=== PATIENT | female | born 1970 | race Caucasian/White ===

== ENCOUNTER 2021-11-14 18:23 | Emergency (ER) | payer MEDICAID, OTHER ==
[~2021-11-14] VITALS: Ht 175 cm; Wt 210.0 kg
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
--- NOTE | 2021-11-14 19:51 | Diagnostic Imaging Report ---
HISTORY: Left tibia and fibula, pain after fall. TECHNIQUE: 2 views of the left tibia and fibula. COMPARISON: None. FINDINGS: There are screw tracks in the distal tibia from removed hardware. There are multiple surgical clips in the medial leg. There is marked soft tissue swelling in the left leg. No acute fracture is seen in the left tibia and fibula. There are degenerative changes in the left ankle and there appears to be osteopenia. IMPRESSION: No acute osseous abnormality is seen in the left tibia and fibula. Dictated by: Dictated on workstation # [id number]
--- NOTE | 2021-11-14 19:53 | Diagnostic Imaging Report ---
HISTORY: Left knee pain after fall. TECHNIQUE: 3 views of the left knee. COMPARISON: None. FINDINGS: Bones appear somewhat osteopenic. There is internal fixation of the distal left femoral fracture with an intramedullary artur, lateral plate and numerous screws. There does appear to be some healing change and bone bridging. There are severe degenerative changes in the left knee. No acute fracture is seen. There is suboptimal penetration due to body habitus. IMPRESSION: Internal fixation of the distal left femur fracture with no acute osseous abnormality seen in the left knee. There are severe degenerative changes. Dictated by: Dictated on workstation # [id number]
--- NOTE | 2021-11-14 19:54 | Diagnostic Imaging Report ---
HISTORY: Left femur pain after fall. TECHNIQUE: 2 views of the left femur. COMPARISON: None. FINDINGS: There is internal fixation of the left femur with an intramedullary artur and a lateral plate as well as numerous screws. No hardware fracture or loosening is seen. The bones do appear to be osteopenic. There does appear to be some bony bridging at the distal femur fracture with some heterotopic ossification as well. The proximal left femur is not seen on the lateral view due to body habitus. No fracture is seen on the frontal view. IMPRESSION: Internal fixation of the left femur with a healing distal femoral fracture but no hardware complication or acute fracture is seen. Dictated by: Dictated on workstation # [id number]
== END 2021-11-14 20:50 | disposition home or self-care (01) ==
LOC: EDUNIT# 18:23 → ER 18:25
DX: M79.605 Pain in left leg (principal); I89.0 Lymphedema, not elsewhere classified; E66.01 Morbid (severe) obesity due to excess calories; Z87.81 Personal history of (healed) traumatic fracture; Z95.9 Presence of cardiac and vascular implant and graft, unspecified; W06.XXXA Fall from bed, initial encounter
CPT/HCPCS: 73552; 73562; 73590

== ENCOUNTER 2022-01-14 02:15 | Emergency (ER) | payer MEDICAID ==
[2022-01-14 02:15] VITALS: BP 140/96
[2022-01-14 02:49] LABS: BASOPHILS # (AUTO) 0.1 10^3/uL (0.0-0.1); BASOPHILS % (AUTO) 1 % (0-10); EOSINOPHILS # (AUTO) 0.3 10^3/uL (0.0-0.3); EOSINOPHILS % (AUTO) 4 % (0-10); HEMATOCRIT 40 % (35-52); LYMPHOCYTES # (AUTO) 1.9 10^3/uL (1.0-4.0); LYMPHOCYTES % (AUTO) 28 % (12-44); MEAN CORPUSCULAR HEMOGLOBIN 27 pg (25-34); MEAN CORPUSCULAR HGB CONC 32 g/dL (32-36); MEAN CORPUSCULAR VOLUME 84 fL (80-99); MEAN PLATELET VOLUME 10.1 fL (9.0-12.2); MONOCYTES # (AUTO) 0.5 10^3/uL (0.0-1.0); MONOCYTES % (AUTO) 7 % (0-12); NEUTROPHILS % (AUTO) 59 % (42-75); PLATELET COUNT 245 10^3/uL (130-400); WHITE BLOOD COUNT 6.8 10^3/uL (4.3-11.0)
[2022-01-14 03:00] LABS: POTASSIUM 3.7 MMOL/L (3.6-5.0)
[2022-01-14 03:01] LABS: CALCIUM 8.6 MG/DL (8.5-10.1)
[2022-01-14 03:05] LABS: CREATININE SERUM 0.74 MG/DL (0.60-1.30)
[2022-01-14 03:08] LABS: MAGNESIUM 1.8 MG/DL (1.6-2.4)
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
[2022-01-14] MEDS ORDERED: PRD20T PO (05:08)
[2022-01-14] MEDS ORDERED: predniSONE 20 MG TAB PO ONE (05:15)
== END 2022-01-14 05:50 | disposition home or self-care (01) ==
LOC: EDUNIT# 02:15 → ER 02:17
DX: R20.0 Anesthesia of skin (principal); E66.01 Morbid (severe) obesity due to excess calories; Z68.44 Body mass index [BMI] 60.0-69.9, adult
CPT/HCPCS: 36415; 80048; 83735; 85025; 99283

== ENCOUNTER 2022-06-05 11:14 | Emergency (ER) | payer MEDICAID ==
[~2022-06-05 11:14] MED LIST: PRD20T PO
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
[2022-06-05 12:14] LABS: BASOPHILS % (AUTO) 0 % (0-10); EOSINOPHILS # (AUTO) 0.1 10^3/uL (0.0-0.3); EOSINOPHILS % (AUTO) 1 % (0-10); HEMATOCRIT 43 % (35-52); HEMOGLOBIN 13.6 g/dL (11.5-16.0); LYMPHOCYTES # (AUTO) 1.6 10^3/uL (1.0-4.0); LYMPHOCYTES % (AUTO) 28 % (12-44); MEAN CORPUSCULAR HEMOGLOBIN 27 pg (25-34); MEAN CORPUSCULAR HGB CONC 32 g/dL (32-36); MEAN CORPUSCULAR VOLUME 84 fL (80-99); MONOCYTES # (AUTO) 0.3 10^3/uL (0.0-1.0); MONOCYTES % (AUTO) 5 % (0-12); NEUTROPHILS # (AUTO) 3.8 10^3/uL (1.8-7.8); NEUTROPHILS % (AUTO) 65 % (42-75); PLATELET COUNT 266 10^3/uL (130-400); WHITE BLOOD COUNT 5.9 10^3/uL (4.3-11.0)
[2022-06-05 12:23] LABS: INR 1.1 (0.8-1.4); PROTHROMBIN TIME PATIENT 14.7 SEC (12.2-14.7)
[2022-06-05 12:31] LABS: ALBUMIN 3.3 GM/DL (3.2-4.5); BILIRUBIN,TOTAL 0.8 MG/DL (0.1-1.0); CALCIUM 8.7 MG/DL (8.5-10.1); CREATININE SERUM 0.81 MG/DL (0.60-1.30); POTASSIUM 3.2 MMOL/L (3.6-5.0); TOTAL PROTEIN 6.9 GM/DL (6.4-8.2)
[2022-06-05] MEDS ORDERED: CEFD300C3 PO (12:39)
[2022-06-05 13:35] VITALS: BP 129/86
== END 2022-06-05 13:35 | disposition home or self-care (01) ==
LOC: EDUNIT# 11:14 → ER 11:18
DX: R04.0 Epistaxis (principal); E66.9 Obesity, unspecified; Z68.44 Body mass index [BMI] 60.0-69.9, adult
CPT/HCPCS: 36415; 80053; 85025; 85610; 85730; 99284

== ENCOUNTER 2022-07-08 08:32 | Inpatient (IN) | payer MEDICAID ==
[2022-07-08] VITALS (15 sets, daily range): BP systolic 74–105; BP diastolic 54–70
[~2022-07-08] VITALS: Ht 175 cm; Wt 231.0 kg
[~2022-07-08 08:32] MED LIST changes: +CEFD300C3 PO
[2022-07-08] MEDS ORDERED: NS IV 1000 ML 1,000 ML IV SCH (09:00)
[2022-07-08 09:11] LABS: BASOPHILS # (AUTO) 0.1 10^3/uL (0.0-0.1); BASOPHILS % (AUTO) 0 % (0-10); EOSINOPHILS # (AUTO) 0.3 10^3/uL (0.0-0.3); EOSINOPHILS % (AUTO) 1 % (0-10); HEMATOCRIT 44 % (35-52); HEMOGLOBIN 14.5 g/dL (11.5-16.0); LYMPHOCYTES % (AUTO) 4 % (12-44); MEAN CORPUSCULAR HEMOGLOBIN 28 pg (25-34); MEAN CORPUSCULAR HGB CONC 33 g/dL (32-36); MEAN CORPUSCULAR VOLUME 83 fL (80-99); MEAN PLATELET VOLUME 10.6 fL (9.0-12.2); MONOCYTES # (AUTO) 0.5 10^3/uL (0.0-1.0); MONOCYTES % (AUTO) 2 % (0-12); NEUTROPHILS # (AUTO) 22.3 10^3/uL (1.8-7.8); NEUTROPHILS % (AUTO) 92 % (42-75); PLATELET COUNT 377 10^3/uL (130-400); WHITE BLOOD COUNT 24.2 10^3/uL (4.3-11.0)
[2022-07-08 09:23] LABS: ALBUMIN 2.7 GM/DL (3.2-4.5)
[2022-07-08 09:24] LABS: POTASSIUM 4.4 MMOL/L (3.6-5.0)
[2022-07-08 09:25] LABS: CALCIUM 8.9 MG/DL (8.5-10.1)
[2022-07-08 09:26] LABS: TOTAL PROTEIN 6.6 GM/DL (6.4-8.2)
[2022-07-08 09:28] LABS: BILIRUBIN,TOTAL 1.2 MG/DL (0.1-1.0)
[2022-07-08 09:30] LABS: CREATININE SERUM 1.41 MG/DL (0.60-1.30); INR 2.1 (0.8-1.4)
--- NOTE | 2022-07-08 09:39 | Diagnostic Imaging Report ---
INDICATION: AMS, hypoxia COMPARISON: None FINDINGS: Single frontal view of the chest demonstrates normal heart size and pulmonary vascularity. The lungs are well aerated and clear. No large pleural effusion or pneumothorax is seen. The visualized osseous structures show no acute abnormalities. Right-sided subclavian Port-A-Cath is noted. Central tip appears to terminate in the SVC. IMPRESSION: 1. No acute cardiopulmonary process. Dictated by: Dictated on workstation # [id number]
[2022-07-08] MEDS ORDERED: cefTRIAXone 1 GM PRE-MIX 50 ML IV ONE (09:45)
[2022-07-08] MEDS ORDERED: VANCOMYCIN INJECTION 1,000 MG in NS (IVPB) 250 ML IV ONE (09:45)
--- NOTE | 2022-07-08 09:45 | Diagnostic Imaging Report ---
INDICATION: Altered mental status. Cellulitis. COMPARISON: None FINDINGS: 2 radiographic views of the left hip were obtained. Evaluation is severely degraded by patient body habitus and soft tissue attenuation. Included portions left hemipelvis are intact. Included portions of proximal left femur are intact as well. Postsurgical changes of prior left femoral ORIF are noted. Femoral acetabular joint space appears maintained. No unexpected radiopaque foreign bodies. IMPRESSION: 1. No new acute abnormality of the left hip, although evaluation is degraded by overlying soft tissue attenuation. Dictated by: Dictated on workstation # [id number]
--- NOTE | 2022-07-08 09:45 | Diagnostic Imaging Report ---
INDICATION: Altered mental status. Hypoxic. Cellulitis. COMPARISON: 11/14/2021 FINDINGS: Multiple radiographic views of the left femur were obtained. Evaluation is severely degraded by patient body habitus and soft tissue attenuation. Postsurgical changes of previous left femoral ORIF are again identified. Surgical hardware is in stable alignment. No unexpected radiopaque foreign bodies are seen. There is also stable gross deformity of the distal femur consistent with old fracture. No new acute osseous abnormality is seen. Left hip and knee joint spaces appear appropriate. IMPRESSION: 1. 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 2. No new acute osseous abnormality of the left femur, although evaluation is degraded by soft tissue attenuation Dictated by: Dictated on workstation # [id number]
[2022-07-08 09:49] LABS: ANISOCYTOSIS SLIGHT; BAND NEUTROPHILS 13 %; BASOPHILS % (MANUAL) 0 %; EOSINOPHILS % (MANUAL) 0 %; LYMPHOCYTES % (MANUAL) 7 %; MONOCYTES % (MANUAL) 1 %; NEUTROPHILS % (MANUAL) 79 %
--- NOTE | 2022-07-08 10:46 | ED General ---
General Chief Complaint: Skin/Wound Problems Stated Complaint: CELLULITIS Nursing Triage Note: PT PRESENTS TO ED VIA EMS FROM [facility] CELLULITUS TO L THIGH. USP STAFF REPORTS PT HAD A CBC DRAWN YESTERDAY AND IT WAS 16.5. MSTAFF ALSO REPORTS NEW ONSET CONFUSION. Source of Information: Patient, EMS History of Present Illness Date Seen by Provider: Jul 08, 2022 Time Seen by Provider: 09:50 Initial Comments 52-year-old female presents from [facility] for left leg pain. Staff were concerned she may have cellulitis. She had CBC drawn yesterday and her white count was reportedly 16.5. Staff also endorsed some increased confusion this morning. No fevers or chills. No nausea or vomiting. On arrival patient complains of left leg pain in her thigh, hip area. No other symptoms on full review of systems. Allergies and Home Medications Allergies Coded Allergies: Penicillins (Verified Allergy, Unknown, 11/14/21) acetaminophen (Verified Allergy, Unknown, 11/14/21) clindamycin (Verified Allergy, Unknown, 11/14/21) dextromethorphan (Verified Allergy, Unknown, 11/14/21) diphenhydramine (Verified Allergy, Unknown, 11/14/21) doxylamine (Verified Allergy, Unknown, 11/14/21) erythromycin base (Verified Allergy, Unknown, 11/14/21) pseudoephedrine (Verified Allergy, Unknown, 11/14/21) quetiapine (Verified Allergy, Unknown, 11/14/21) Patient Home Medication List Home Medication List Reviewed: Yes Cefdinir (Cefdinir) 300 Mg Capsule, 300 MG PO BID Prescribed by: Franky Blue on 06/05/22 1239 Prednisone (Prednisone) 20 Mg Tab, 40 MG PO DAILY Prescribed by: SOSA KRUSE on 01/14/22 0508 Review of Systems Review of Systems Constitutional: no symptoms reported EENTM: no symptoms reported Respiratory: no symptoms reported Cardiovascular: no symptoms reported Gastrointestinal: no symptoms reported Genitourinary: no symptoms reported Musculoskeletal: other (Left thigh pain.) Skin: rash Psychiatric/Neurological: No Symptoms Reported Hematologic/Lymphatic: No Symptoms Reported Immunological/Allergic: no symptoms reported Past Lbmoxjh-Xvkxha-Gwxoiw Hx Patient Social History Tobacco Use?: No Substance use?: No Alcohol Use?: No Pt feels they are or have been: No Immunizations Up To Date First/Initial COVID19 Vaccinat: unknown date Second COVID19 Vaccination Eleazar: unknown date Third COVID19 Vaccination Date: unknown date Past Medical History Surgery/Hospitalization HX: obesity, anemia, asthma, hypothyroid, depression,cva, ANXIETY, LYMPHEDEMA, KIDNEY STONE Surgeries: Yes (Corrective surgeries to lower extremities and skin graft right leg) Respiratory: No Cardiac: Yes (Anticoagulated) Neurological: Yes (Neuropathy, chronic numbness of the lower extremities) Reproductive Disorders: No Genitourinary: No Gastrointestinal: No Musculoskeletal: Yes (Injuries with corrective surgeries to the lower extremities) Endocrine: Yes (Morbid obesity) HEENT: No Cancer: No Psychosocial: No Family Medical History Reviewed Nursing Family Hx No Pertinent Family Hx Physical Exam Vital Signs Vital Signs - First Documented 07/08/22 08:54 Temp 36.9 Pulse 116 Resp 17 B/P (MAP) 112/71 (85) Pulse Ox 91 O2 Delivery Nasal Cannula O2 Flow Rate 2.00 Capillary Refill : Less Than 3 Seconds Height, Weight, BMI Height: '" Weight: lbs. oz. kg; 75.00 BMI Method: General Appearance: No Apparent Distress, WD/WN HEENT: Normal ENT Inspection, Pharynx Normal Neck: Normal Inspection, Non Tender, Supple Respiratory: Chest Non Tender, Lungs Clear, Normal Breath Sounds, No Accessory Muscle Use, No Respiratory Distress Cardiovascular: Regular Rate, Rhythm, No Murmur, Normal Peripheral Pulses Gastrointestinal: Normal Bowel Sounds, No Organomegaly, No Pulsatile Mass, Non Tender, Soft, Other (morbidly obese) Neurologic/Psychiatric: Alert, Oriented x3 Skin: Other (chronic changes of venous stasis b/l LE. There is deep purple discoloration to prox R thigh with no fluctuance or drainable abscess. Good distal pulses. 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 ) Focused Exam Lactate Level 07/08/22 09:00: Lactic Acid Level 4.87*H Lactic Acid Level Laboratory Tests Test 07/08/22 09:00 Lactic Acid Level 4.87 MMOL/L (0.50-2.00) *H Progress/Results/Core Measures Suspected Sepsis SIRS Temperature: Pulse: 116 Respiratory Rate: 17 Laboratory Tests 07/08/22 09:00: White Blood Count 24.2H Blood Pressure 112 /71 Mean: 85 07/08/22 09:00: Lactic Acid Level 4.87*H Laboratory Tests 07/08/22 09:00: Creatinine 1.41H, INR Comment 2.1H, Platelet Count 377, Total Bilirubin 1.2H Results/Orders Lab Results Laboratory Tests Test 07/08/22 09:00 Range/Units White Blood Count 24.2 H 4.3-11.0 10^3/uL Red Blood Count 5.24 H 3.80-5.11 10^6/uL Hemoglobin 14.5 11.5-16.0 g/dL Hematocrit 44 35-52 % Mean Corpuscular Volume 83 80-99 fL Mean Corpuscular Hemoglobin 28 25-34 pg Mean Corpuscular Hemoglobin Concent 33 32-36 g/dL Red Cell Distribution Width 15.7 H 10.0-14.5 % Platelet Count 377 130-400 10^3/uL Mean Platelet Volume 10.6 9.0-12.2 fL Immature Granulocyte % (Auto) 1 % Neutrophils (%) (Auto) 92 H 42-75 % Lymphocytes (%) (Auto) 4 L 12-44 % Monocytes (%) (Auto) 2 0-12 % Eosinophils (%) (Auto) 1 0-10 % Basophils (%) (Auto) 0 0-10 % Neutrophils # (Auto) 22.3 H 1.8-7.8 10^3/uL Lymphocytes # (Auto) 1.0 1.0-4.0 10^3/uL Monocytes # (Auto) 0.5 0.0-1.0 10^3/uL Eosinophils # (Auto) 0.3 0.0-0.3 10^3/uL Basophils # (Auto) 0.1 0.0-0.1 10^3/uL Immature Granulocyte # (Auto) 0.2 H 0.0-0.1 10^3/uL Neutrophils % (Manual) 79 % Lymphocytes % (Manual) 7 % Monocytes % (Manual) 1 % Eosinophils % (Manual) 0 % Basophils % (Manual) 0 % Band Neutrophils 13 % Anisocytosis SLIGHT Prothrombin Time 24.0 H 12.2-14.7 SEC INR Comment 2.1 H 0.8-1.4 Activated Partial Thromboplast Time 39 H 24-35 SEC Sodium Level 131 L 135-145 MMOL/L Potassium Level 4.4 3.6-5.0 MMOL/L Chloride Level 97 L 98-107 MMOL/L Carbon Dioxide Level 17 L 21-32 MMOL/L Anion Gap 17 H 5-14 MMOL/L Blood Urea Nitrogen 29 H 7-18 MG/DL Creatinine 1.41 H 0.60-1.30 MG/DL Estimat Glomerular Filtration Rate 45 BUN/Creatinine Ratio 21 Glucose Level 235 H 70-105 MG/DL Lactic Acid Level 4.87 *H 0.50-2.00 MMOL/L Calcium Level 8.9 8.5-10.1 MG/DL Corrected Calcium 9.9 8.5-10.1 MG/DL Total Bilirubin 1.2 H 0.1-1.0 MG/DL Aspartate Amino Transf (AST/SGOT) 46 H 5-34 U/L Alanine Aminotransferase (ALT/SGPT) 52 0-55 U/L Alkaline Phosphatase 96 40-136 U/L Total Protein 6.6 6.4-8.2 GM/DL Albumin 2.7 L 3.2-4.5 GM/DL My Orders Orders - ERIKA LANDA DO Cbc With Automated Diff (07/08/22 08:51) Comprehensive Metabolic Panel (07/08/22 08:51) Blood Culture (07/08/22 08:51) Urinalysis (07/08/22 08:51) Urine Culture (07/08/22 08:51) Protime With Inr (07/08/22 08:51) Partial Thromboplastin Time (07/08/22 08:51) Chest 1 View, Ap/Pa Only (07/08/22 08:51) Ed Iv/Invasive Line Start (07/08/22 08:51) Vital Signs Adult Sepsis Patie Q15M (07/08/22 08:51) O2 (07/08/22 08:51) Lactic Acid Analyzer (07/08/22 08:51) Femur, Left, 2 Views (07/08/22 08:51) Hip, Left, 2 Views (07/08/22 08:51) Ns Iv 1000 Ml (Sodium Chloride 0.9%) (07/08/22 09:00) Manual Differential (07/08/22 09:00) Ceftriaxone 1 Gm Pre-Mix (Rocephin 1 Gm (07/08/22 09:45) Vancomycin Injection (Vancomycin Injecti (07/08/22 09:45) Ed Admission (Communication) (07/08/22 10:45) Code/Resuscitation (07/08/22 10:56) Medications Given in ED Current Medications Medications Dose Ordered Sig/Florencio Route Start Time Stop Time Status Last Admin Dose Admin Ceftriaxone Sodium/Dextrose 50 ml @ 100 mls/hr ONCE ONCE IV 07/08/22 09:45 07/08/22 10:14 DC 07/08/22 10:35 100 MLS/HR Vancomycin HCl 1000 mg/Sodium Chloride 250 ml @ 250 mls/hr ONCE ONCE IV 07/08/22 09:45 07/08/22 10:44 DC 07/08/22 10:36 250 MLS/HR Vital Signs/I&O 07/08/22 08:54 Temp 36.9 Pulse 116 Resp 17 B/P (MAP) 112/71 (85) Pulse Ox 91 O2 Delivery Nasal Cannula O2 Flow Rate 2.00 Capillary Refill : Less Than 3 Seconds Blood Pressure Mean: 85 Departure Communication (Admissions) Patient is stable. She has significant pain in her thigh and hip on exam. Xrays obtained and are negative. She has good distal pulses. She does have changes that could represent cellulitis, but no evidence of abscess. Her exam is very difficult due to body habitus. There is no evidence for nec fasciitis, deeper infection. I dont think this is from DVT, however US ordered and pending at this time. CBC does show significant leukocytosis with L shift. Significant elevation of lactic acid. She is normotensive. I dont think it sanchez to give 30 cc/kg bolus due to habitus. I have given 1l bolus. I spoke with Dr De Dios who will further manage fluids from here. She does have slight elevation of Cr, unclear significance at this time. No anemia. Slight low Na but likely not clinically significant at this time. She does meet sepsis criteria. Given rocephin and vanc after blood cultures drawn. She is admitted to step down in stable condition. I did confirm that she is a full code and placed this order. Dr De Dios states she will place other acute orders. Impression Primary Impression: Sepsis Qualified Codes: A41.9 - Sepsis, unspecified organism Additional Impression: Cellulitis Qualified Codes: L03.116 - Cellulitis of left lower limb Disposition: ADMITTED INPATIENT Condition: Stable Admissions Decision to Admit Reason: Admit from ER (General) Departure-Patient Inst. Referrals: NO,LOCAL PHYSICIAN (PCP/Family) Primary Care Physician ERIKA LANDA DO Jul 08, 2022 10:46
[2022-07-08] MEDS ORDERED: NS IV 1000 ML 1,000 ML IV ONE (13:15)
[2022-07-08] MEDS ORDERED: CALCIUM CARBONATE 500 MG (TUMS) TAB.CHEW PO PRN (13:15)
[2022-07-08] MEDS ORDERED: polyethylene glycoL POWDER 17 GM (MIRALAX) PACK PO PRN ×2 (13:15→19:30)
[2022-07-08] MEDS ORDERED: VANCOMYCIN INJECTION 0.1 MG in NS (IVPB) 250 ML IV SCH (13:15)
[2022-07-08] MEDS ORDERED: MELATONIN 3 MG TABLET PO PRN (13:15)
[2022-07-08] MEDS ORDERED: VANCOMYCIN 1 GM/NS 250 ML IVPB IV NR ×2 (13:30)
[2022-07-08] MEDS: NS IV 1000 ML 1,000 ML IV SCH ×2 (13:33→22:18)
[2022-07-08] MEDS ORDERED: VANCOMYCIN 1500 MG/NS 500 ML IVPB IV NR ×2 (14:00)
--- NOTE | 2022-07-08 14:35 | Occ Therapy Progress Note ---
Therapy Progress Note OT orders received and chart reviewed. OT visited with pt who indicates she is [facility]. She has been completely dependent with all ADLS and transfers for more than a year. She had therapy ~1 year ago and was able to get up to w/c via jayson transfer. Over the last year, pt has not been out of bed, even via jayson, and has been completely bed bound and dependent. No skilled OT services indicated at this time, as pt is at [facility], dependent with ADLS. D/C from OT. 1, visit 1630 CHRISTELLE HOBSON OT Jul 08, 2022 14:35
--- NOTE | 2022-07-08 14:37 | Physical Therapy Progress Note ---
Therapy Progress Note PT orders received and chart reviewed. PT visited with pt who indicates she is from [facility]. She has been completely dependent with all transfers for more than a year. She had therapy ~1 year ago and was able to get up to w/c via jayson transfer. Over the last year, pt has not been out of bed, even via jayson, and has been completely bed bound and dependent. No skilled PT services indicated at this time, as pt is at [facility], dependent with ADLS. D/C from PT. RONALD MARIEE PT Jul 08, 2022 14:37
--- NOTE | 2022-07-08 15:00 | History & Physical-Hospitalist ---
KOMAL STRINGER 07/08/22 1500: History of Present Illness HPI/Chief Complaint Pt. is a 52 year old female who presented to the ED today with left leg pain. She is currently living at [facility] and reports the pain began yesterday. She rates it as a 9/10 pain that is in her left hip, thigh, and calf. She denies any recent falls or trauma to the area, but patient is a poor historian and does have altered mental status at this time. She knows she is in the hospital, but isn;t sure where and believed it was 2002 when I spoke with her. She reportedly had a CBC yesterday with a WBC count of 15.5. In the ED today she was tachycardic, with a WBC of 24.2 and a lactic acid of 4.87 initially. 1L IV normal saline bolus was given in the ED and patient was given 1 dose of rocephin and vancomycin with plans to admit. She reports mild headaches and intermittent chills since the pain began. She denies chest pain, SOB, abd pain, N/V/D, new weakness/numbness of extremities. Source: patient Date Seen 07/08/22 Time Seen by a Provider: 11:50 Attending Physician No,Local Physician PCP Admitting Physician: Bridgett De Dios MD Attending Physician: Bridgett De Dios MD Referring Physician Date of Admission Jul 08, 2022 at 10:45 Home Medications & Allergies Home Medications Reviewed patient Home Medication Reconciliation performed by pharmacy medication reconciliations refractory technician and/or nursing. Patients Allergies have been reviewed. Allergies Allergies Coded Allergies Penicillins (Verified Allergy, Unknown, 11/14/21) acetaminophen (Verified Allergy, Unknown, 11/14/21) clindamycin (Verified Allergy, Unknown, 11/14/21) dextromethorphan (Verified Allergy, Unknown, 11/14/21) diphenhydramine (Verified Allergy, Unknown, 11/14/21) doxylamine (Verified Allergy, Unknown, 11/14/21) erythromycin base (Verified Allergy, Unknown, 11/14/21) pseudoephedrine (Verified Allergy, Unknown, 11/14/21) quetiapine (Verified Allergy, Unknown, 11/14/21) Past Lyfmkux-Qpisev-Zjvjsj Hx Patient Social History Tobacco Use?: No Substance use?: No Alcohol Use?: No Pt feels they are or have been: No Immunizations Up To Date First/Initial COVID19 Vaccinat: unknown date Second COVID19 Vaccination Eleazar: unknown date Tetanus Booster (TDap): Unknown Current Status Advance Directives: Yes Primary Language: Kuwaiti Preferred Spoken Language: Kuwaiti Past Medical History Surgeries: Amputation (toes of left foot), Joint Replacement (Bilateral knee replacment per pt.) Loss of Vision: Denies Hearing Impairment: Denies Blood Disorders: No Family Medical History Reviewed Nursing Family Hx No Pertinent Family Hx Review of Systems Constitutional: chills; No dizziness, No fever EENTM: No vision loss Respiratory: No cough, No short of breath Cardiovascular: No chest pain, No edema, No palpitations Gastrointestinal: No abdominal pain, No constipation, No diarrhea, No nausea, No vomiting Genitourinary: No dysuria; frequency (normal) Musculoskeletal: other (Diffuse left leg pain) Physical Exam Physical Exam Vital Signs Vital Signs - First Documented 07/08/22 08:54 Temp 36.9 Pulse 116 Resp 17 B/P (MAP) 112/71 (85) Pulse Ox 91 O2 Delivery Nasal Cannula O2 Flow Rate 2.00 Capillary Refill : Less Than 3 Seconds Height, Weight, BMI Height: '" Weight: lbs. oz. kg; 75.42 BMI Method: General Appearance: Obese, Other (Patient appeard mildly flushed) Eyes: Bilateral Eye PERRL, Bilateral Eye EOMI HEENT: PERRL/EOMI, Moist Mucous Membranes Neck: Non Tender, Supple Respiratory: Chest Non Tender, Lungs Clear, No Accessory Muscle Use, No Respiratory Distress Cardiovascular: No Murmur, Normal Peripheral Pulses, Tachycardia Gastrointestinal: Normal Bowel Sounds, Non Tender, Soft Extremity: Other (Non-piting edema bilaterally with warmth and redness in left calf and thigh. Patient did have an area of non-blanching erythema in skin-fold of left hip. Significant weakness in legs due to body habitus.) Neurologic/Psychiatric: campus administrator II-XII Norm as Tested, Disoriented (knows she is in the hospital but unsure where or what year.) Skin: Erythema (diffusely in left leg worse as you approach posterior side, unable to move patient to view entirety of back side due to body habitus, but nursing staff report multiple areas mild breakdown.) Lymphatic: No Adenopathy Results Results/Procedures Labs Laboratory Tests 07/08/22 09:00 Patient resulted labs reviewed. Assessment/Plan Assessment and Plan Setpic shock secondary to Cellulitis w/ altered mental status Pt. met criteria for septic shock with Tachycardia, WBC of 24.2, and LA of 4.87 on presentation IV bolus given in ED, will continue to give IV fluids based on ideal body weight as Pt. weight of 231Kg is too high for normal calculations Pt. Started on Rocephin 1g QD IV and 1G Vancomycin IV QD for cellulitis. LA already improving with repeat of 3.15 at 1100 Lactic Acidosis 07/08/22 0900 LA of 4.87 upon arrival. By 1100 had improved to 3.15 after initiation of therapy. Monitor for now while treating underlying infection. GENNA Cr today of 1.41 which is double her baseline from previous ED visit. Hopefully will improve with fluid resuscitation Monitor for now High anion Gap 07/08/22 Anion Gap of 17 is most certainly due to lactic Acidosis. Monitor for now Hypoalbuminemia 07/08/22 albumin of 2.7L likely secondary to poor nutrition. If pt. condition worsens then will consider whether affecting anion gap calculations Hyperglycemia Random glucose of 235 today. Patinet denies history of Diabetes. elevating may likely be due to stress of infection and being in hospital. Will consider starting Sliding scale Insulin therapy while here. Morbid obesity Elevated Liver enymes 07/08/22 AST of 46. Likely secondary to body habitus. Monitor for now. DVT Prophylaxis Lovenox 40mg SC QD for DVT prophylaxis. May increase dose/frequency due to pt. body habitus. Patient has been on elliquis in the past for unknown reason and had an episode of significant epistaxis. BRIDGETT DE DIOS MD 07/08/22 2017: Assessment/Plan Admission Diagnosis Septic shock Admission Status: Inpatient Order (span 2 midnights) Reason for Inpatient Admission: see below Assessment and Plan Patient presented to the ER due to altered mental status and leukocytosis with concerning skin findings or cellulitis. Emergency room worked her up and she met criteria for septic shock secondary to her cellulitis. We will start her on broad-spectrum IV antibiotics. We will trend her lactic acid. Due to her super morbid obesity we will give her an attenuated fluid bolus for ideal body weight. Supervisory-Addendum Brief Verification & Attestation Participated in pt care: history, MDM, physical Personally performed: exam, history, MDM, supervision of care Care discussed with: Medical Student Procedures: n/a Results interpretation: Verified all documentation Verification and Attestation of Medical Student E/M Service A medical student performed and documented this service in my presence. I re viewed and verified all information documented by the medical student and made modifications to such information, when appropriate. I personally performed the physical exam and medical decision making. Bridgett De Dios, Jul 08, 2022,20:17 KOMAL STRINGER Jul 08, 2022 15:00 BRIDGETT DE DIOS MD Jul 08, 2022 20:17
[2022-07-08] MEDS ORDERED: ASPI-1238 PO (15:08)
[2022-07-08] MEDS ORDERED: BACL10TA PO (15:08)
[2022-07-08] MEDS ORDERED: NYST15CR35 TP (15:08)
[2022-07-08] MEDS ORDERED: PANT40TA52 PO (15:08)
[2022-07-08] MEDS ORDERED: ALB0.5V INH (15:08)
[2022-07-08] MEDS ORDERED: BUME1TAB8 PO (15:08)
[2022-07-08] MEDS ORDERED: HYDR-3817 PO (15:08)
[2022-07-08] MEDS ORDERED: METO-333 PO (15:08)
[2022-07-08] MEDS ORDERED: CYCL5TAB PO (15:08)
[2022-07-08] MEDS ORDERED: MICO85PO14 TP (15:08)
[2022-07-08] MEDS ORDERED: APIX5TAB PO (15:08)
[2022-07-08] MEDS ORDERED: POLY17PO6 PO (15:08)
[2022-07-08] MEDS ORDERED: METH85CR TP (15:08)
[2022-07-08] MEDS ORDERED: MELA3TAB39 PO (15:08)
[2022-07-08] MEDS ORDERED: ONDA-105 PO (15:08)
[2022-07-08] MEDS ORDERED: ACET-2267 PO (15:08)
[2022-07-08] MEDS ORDERED: LOPE2CAP PO (15:08)
[2022-07-08] MEDS: IBUPROFEN 600 MG (MOTRIN) TAB PO PRN (16:59)
[2022-07-08] MEDS ORDERED: IBUPROFEN 600 MG (MOTRIN) TAB PO SCH (18:00)
[2022-07-08] MEDS ORDERED: LOPERAMIDE 2 MG (IMODIUM) TABLET PO PRN (19:30)
[2022-07-08] MEDS ORDERED: NON-FORMULARY MEDICATION 1 EA EA (Cyclobenzaprine HCl 5 MG) PO PRN (19:30)
[2022-07-08] MEDS: HYDROcodone/APAP 7.5 MG/325 MG (LORTAB, LORCET PLUS) TABLET PO SCH (21:09)
[2022-07-08] MEDS: MELATONIN 3 MG TABLET PO SCH (21:09)
[2022-07-08] MEDS: meTOprolol TARTRATE 25 MG (LOPRESSOR) TABLET PO SCH (21:10)
[2022-07-08] MEDS: VANCOMYCIN 2000 MG/NS 500 ML IVPB IV SCH ×2 (22:16)
[2022-07-09] MEDS: NS IV 1000 ML 1,000 ML IV SCH ×3 (02:23→20:19)
[2022-07-09] MEDS: BACLOFEN 10 MG (LIORESAL) TAB PO PRN (02:36)
[2022-07-09 03:38] VITALS: BP 102/49
[2022-07-09 04:08] LABS: BASOPHILS # (AUTO) 0.1 10^3/uL (0.0-0.1); BASOPHILS % (AUTO) 0 % (0-10); EOSINOPHILS % (AUTO) 0 % (0-10); HEMATOCRIT 35 % (35-52); HEMOGLOBIN 11.6 g/dL (11.5-16.0); LYMPHOCYTES % (AUTO) 5 % (12-44); MEAN CORPUSCULAR HEMOGLOBIN 28 pg (25-34); MEAN CORPUSCULAR HGB CONC 33 g/dL (32-36); MEAN CORPUSCULAR VOLUME 84 fL (80-99); MEAN PLATELET VOLUME 10.4 fL (9.0-12.2); MONOCYTES # (AUTO) 0.6 10^3/uL (0.0-1.0); MONOCYTES % (AUTO) 3 % (0-12); NEUTROPHILS # (AUTO) 19.5 10^3/uL (1.8-7.8); NEUTROPHILS % (AUTO) 92 % (42-75); PLATELET COUNT 245 10^3/uL (130-400); WHITE BLOOD COUNT 21.2 10^3/uL (4.3-11.0)
[2022-07-09 04:19] LABS: ALBUMIN 2.2 GM/DL (3.2-4.5); POTASSIUM 4.2 MMOL/L (3.6-5.0)
[2022-07-09 04:21] LABS: CALCIUM 8.2 MG/DL (8.5-10.1)
[2022-07-09 04:22] LABS: TOTAL PROTEIN 5.3 GM/DL (6.4-8.2)
[2022-07-09 04:23] LABS: BILIRUBIN,TOTAL 0.7 MG/DL (0.1-1.0)
[2022-07-09 04:25] LABS: CREATININE SERUM 1.5 MG/DL (0.60-1.30)
[2022-07-09 07:44] VITALS: BP 102/62
[2022-07-09] MEDS: IBUPROFEN 600 MG (MOTRIN) TAB PO PRN (09:11)
[2022-07-09] MEDS: ASPIRIN E.C. 81 MG (ECOTRIN) TAB PO SCH (09:11)
[2022-07-09] MEDS: cefTRIAXone 1 GM PRE-MIX 50 ML IV SCH (09:12)
[2022-07-09] MEDS: PANTOPRAZOLE 40 MG (PROTONIX) TAB PO SCH (09:12)
[2022-07-09] MEDS: HYDROcodone/APAP 7.5 MG/325 MG (LORTAB, LORCET PLUS) TABLET PO SCH ×2 (09:12→20:19)
[2022-07-09] MEDS: meTOprolol TARTRATE 25 MG (LOPRESSOR) TABLET PO SCH ×2 (09:12→20:19)
[2022-07-09] MEDS: VANCOMYCIN 2000 MG/NS 500 ML IVPB IV SCH ×4 (10:29→23:37)
--- NOTE | 2022-07-09 10:57 | Progress Note - Hospitalist ---
KOMAL STRINGER 07/09/22 1057: Subjective HPI/CC On Admission Pt. is a 52 year old female who presented to the ED today with left leg pain. She is currently living at [facility] and reports the pain began yesterday. She rates it as a 9/10 pain that is in her left hip, thigh, and calf. She denies any recent falls or trauma to the area, but patient is a poor historian and does have altered mental status at this time. She knows she is in the hospital, but isn;t sure where and believed it was 2002 when I spoke with her. She reportedly had a CBC yesterday with a WBC count of 15.5. In the ED today she was tachycardic, with a WBC of 24.2 and a lactic acid of 4.87 initially. 1L IV normal saline bolus was given in the ED and patient was given 1 dose of rocephin and vancomycin with plans to admit. She reports mild headaches and intermittent chills since the pain began. She denies chest pain, SOB, abd pain, N/V/D, new weakness/numbness of extremities. Subjective/Events-last exam Patient awake in bed aleart and oriented x3 when seen this morning, which is an improvement from yesterday. She reports feeling better today, but still reports 9/10 left leg pain. She has a good appetite at this time and has had a BM this morning. She denies fever, chills, LH, dizziness, CP, palpitations, SOB, cough, abd pain, N/V/D at this time. Review of Systems General: No Chills HEENT: No Head Aches, No Visual Changes Pulmonary: No Dyspnea, No Cough, No Pleuritic Chest Pain Cardiovascular: No: Chest Pain, Palpitations Gastrointestinal: No: Nausea, Vomiting, Abdominal Pain, Diarrhea Genitourinary: No Dysuria, No Hematuria Musculoskeletal: leg pain (left leg pain) Neurological: No: Confusion Focused Exam Lactate Level 07/08/22 21:03: Lactic Acid Level 2.59*H 07/08/22 23:14: Lactic Acid Level 2.31*H 07/09/22 04:01: Lactic Acid Level 1.75 Objective Exam Vital Signs Vital Signs Date Time Temp Pulse Resp B/P (MAP) Pulse Ox O2 Delivery O2 Flow Rate FiO2 07/09/22 11:26 36.4 73 18 93/55 (68) 93 Room Air 07/09/22 08:00 2.00 Capillary Refill : Less Than 3 Seconds General Appearance: No Apparent Distress, WD/WN, Obese HEENT: PERRL/EOMI, Moist Mucous Membranes Neck: Non Tender, Supple Respiratory: Chest Non Tender, Lungs Clear, Normal Breath Sounds, No Accessory Muscle Use, No Respiratory Distress Cardiovascular: Regular Rate, Rhythm, No Murmur, Normal Peripheral Pulses Gastrointestinal: Normal Bowel Sounds, Non Tender, Soft Extremity: Normal Capillary Refill, Other (significant non-pitting edema bilaterally with erythema and warmth on palpation of left leg. Improved since yesterday. Still difficult to assess posterior aspect of legs.) Neurologic/Psychiatric: Alert, Oriented x3, No Motor/Sensory Deficits, Normal Mood/Affect, pipe racker II-XII Norm as Tested Skin: Erythema (left leg diffusely) Lymphatic: No Adenopathy Results/Procedures Lab Laboratory Tests 07/09/22 04:01 Patient resulted labs reviewed. Assessment/Plan Assessment and Plan Assess & Plan/Chief Complaint Septic shock secondary to Cellulitis of left leg w/ altered mental status Pt. met criteria for septic shock with Tachycardia, WBC of 24.2, and LA of 4.87 on presentation IV bolus given in ED, will continue to give IV fluids based on ideal body weight as Pt. weight of 231Kg is too high for normal calculations Day 2 of Rocephin 1g QD IV and 2G Vancomycin IV BID for cellulitis. LA peaked at 5.65 yesterday afternoon but has improved to 1.75 today Consult woundcare. Will monitor for another 24 hours and expect DC tomorrow or Wednesday if co ndition continues to improve. Lactic Acidosis 07/08/22 0900 LA of 4.87 upon arrival. Peaked at 5.65 in afternoon. Improved to 1.75 today GENNA Cr today of 1.5 which is up from 1.41 yesterday which is double her baseline from previous ED visit. Hopefully will improve with fluid resuscitation Monitor for now High anion Gap Resolved today with LA improvement Hypoalbuminemia 07/08/22 albumin of 2.7L likely secondary to poor nutrition. Hyperglycemia Random glucose of 235 on 07/08/22. Patient denies history of Diabetes. Elevation may likely be due to stress of infection and being in hospital. Will consider starting Sliding scale Insulin therapy while here. Morbid obesity Elevated Liver enymes 07/08/22 AST of 46. Likely secondary to body habitus. Monitor for now. DVT Prophylaxis Lovenox 40mg SC QD for DVT prophylaxis refused by patient due to history of epistaxis. SCDs BRIDGETT DE DIOS MD 07/09/22 1420: Subjective HPI/CC On Admission Date Seen by Provider: Jul 09, 2022 Assessment/Plan Assessment and Plan Assess & Plan/Chief Complaint Patient reports feeling much better today. She still has what she reports is 9 out of 10 leg pain but it is improved with her pain medication. Wound care has not been in to see her yet but discussed the rationale for wound care seeing her. Her erythema and warmth has improved of her on her cellulitis. We are still awaiting blood cultures. Supervisory-Addendum Brief Verification & Attestation Participated in pt care: history, MDM, physical Personally performed: exam, history, MDM, supervision of care Care discussed with: Medical Student Procedures: n/a Results interpretation: Verified all documentation Verification and Attestation of Medical Student E/M Service A medical student performed and documented this service in my presence. I reviewed and verified all information documented by the medical student and made modifications to such information, when appropriate. I personally performed the physical exam and medical decision making. Bridgett De Dios, Jul 09, 2022,14:14 KOMAL STRINGER Jul 09, 2022 10:57 BRIDGETT DE DIOS MD Jul 09, 2022 14:20
[2022-07-09 11:26] VITALS: BP 93/55
[2022-07-09] MEDS ORDERED: HYPOCHLOROUS ACID/NaCl (VASHE) 250 ML IR SCH (13:30)
--- NOTE | 2022-07-09 13:32 | Wound Care Assessment ---
Wound Care Assessment Date Seen by Provider: Jul 09, 2022 Time Seen by Provider: 12:20 Chief Complaint Multiple full thickness ulcerations related to lymphedema and moisture assoc iated dermatitis HPI This pleasant 52 year old patient is admitted with leukocytosis, cellulitis and altered mental status concerning for sepsis. She is currently receiving appropriate antibiotic therapy per her primary team. Marcelle is massively obese with a long h/o lymphedema up to her trunk. 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 Her current weight is >500pounds. She is unable to move herself at home and is in bed continuously. She is changed infrequently due to the number of staff necessary to assist with cleaning and changing. It took 3 persons to do her dressing changes and clean her bed while I was present in the room. She has ulcers currently on bilateral hips which are pressure and lymphedema related and her sacrum which are pressure and moisture related. She does also have numerous small weeping blisters to bilateral calves with massive lymphedema. She notes that she has successfully used intermittent compression boots (SCD's) at home in past but has been unable recently due to copious drainage. She has minimal drainage from her calves today and we plan to dress with silver alginate, BFD and SURJIT wraps. We will try SCD's while she is with us if patient tolerates. She will be difficult to heal for the above reasons. Weight loss is strongly advised. Sepsis, recurrent cellulitis, h/o amputations, h/o skin grafting, massive lymphedema, massive obesity Other Social Hx lives at [facility] Care and Re[facility] Review of Systems General: Other (Massive obesity) Pulmonary: Dyspnea Neurological: Weakness Exam Vital Signs Date Time Temp Pulse Resp B/P (MAP) Pulse Ox O2 Delivery O2 Flow Rate FiO2 07/09/22 11:26 36.4 73 18 93/55 (68) 93 Room Air 07/09/22 08:00 2.00 Capillary Refill : Less Than 3 Seconds General Appearance: no apparent distress, obese HEENT: other (hearing wnl) Neck: full range of motion Cardiovascular: other (3+ edema to b/l LE extending up to trunk) Respiratory: no respiratory distress, no accessory muscle use Extremities: inflammation (b/l LE (chronic and unchanged per patient. Edema and erythema to b/l hips which is worsened from past) Neurologic/Psychiatric: alert, normal mood/affect, oriented x 3 Skin Character: bullous, drainage (serous (copious)), erythema (bilateral hips/flank), swelling, thickening 1. L. hip: 5x4.5x0.2cm. The epithelialization is none. There is no tunneling or undermining. Drainage is large and serous. Granulation is none. Necrotic is large and slough. The margins show epibole and there is massive edema, erythema and bullous changes in periwound 2. sacrum: 1.5x1.5x0.1. The epithelialization is none. There is no tunneling or undermining. Drainage is large and serosanguinous. Granulation is none. Necrotic is large and slough. The margins are flat. There is erythema and dusky discoloration in periwound consistent with stage 1 pressure changes. The wound bed is friable. Results Laboratory Tests 07/08/22 14:20: Lactic Acid Level 5.65*H 07/08/22 17:08: Lactic Acid Level 3.07*H 07/08/22 19:10: Lactic Acid Level 2.39*H 07/08/22 21:03: Lactic Acid Level 2.59*H 07/08/22 23:14: Lactic Acid Level 2.31*H 07/09/22 04:01: Lactic Acid Level 1.75, White Blood Count 21.2H, Red Blood Count 4.22, Hemoglobin 11.6, Hematocrit 35, Mean Corpuscular Volume 84, Mean Corpuscular H emoglobin 28, Mean Corpuscular Hemoglobin Concent 33, Red Cell Distribution Width 15.6H, Platelet Count 245, Mean Platelet Volume 10.4, Immature Granulocyte % (Auto) 1, Neutrophils (%) (Auto) 92H, Lymphocytes (%) (Auto) 5L, Monocytes (%) (Auto) 3, Eosinophils (%) (Auto) 0, Basophils (%) (Auto) 0, Neutrophils # (Auto) 19.5H, Lymphocytes # (Auto) 1.0, Monocytes # (Auto) 0.6, Eosinophils # (Auto) 0.0, Basophils # (Auto) 0.1, Immature Granulocyte # (Auto) 0.1, Sodium Level 132L, Potassium Level 4.2, Chloride Level 101, Carbon Dioxide Level 19L, Anion Gap 12, Blood Urea Nitrogen 38H, Creatinine 1.50H, Estimat Glomerular Filtration Rate 41, BUN/Creatinine Ratio 25, Glucose Level 179H, Calcium Level 8.2L, Corrected Calcium 9.6, Total Bilirubin 0.7, Aspartate Amino Transf (AST/SGOT) 17, Alanine Aminotransferase (ALT/SGPT) 31, Alkaline Phosphatase 87, Total Protein 5.3L, Albumin 2.2L Assessment/Plan/Dx Assessment: 1. Full thickness non-pressure ulcers of bilateral hips, and sacrum with fat exposed 2. Bullous weeping of bilateral calves related to massive lymphedema 2. Stage 3 MASD ulcer of sacrum 3. cellulitis bilateral hips and lower extremities 4. Sepsis and AMS 5. massive obesity 6. PEM (severe) 7. Generalized weakness Plan: 1. Cleanse daily with Vashe. Apply Aquacel AG to any open wound, secure with Allevyn BFD and change daily/prn for saturation. Barrier ointment in periwound 2. Cleanse daily with Vashe. Apply Aquacel AG to any open wound, secure with Allevyn BFD and change daily/prn for saturation. Barrier ointment to periwound. Cover with SURJIT wraps and use SCD's atop 3. Cleanse daily with Vashe. Apply Aquacel AG to woundbed. Barrier ointment to periwound. Secure with allevyn BFD and change daily and prn soiling/saturation. 4. Agree with systemic antibiotics 5. Per primary 6. Weight loss advisable 7. Protein shakes 8. Per Primary team BISHOP AGRAWAL MD Jul 09, 2022 13:32
[2022-07-09 16:00] VITALS: BP 106/56
[2022-07-09 20:06] VITALS: BP 105/62
[2022-07-09] MEDS: MELATONIN 3 MG TABLET PO SCH (20:18)
[2022-07-09] MEDS ORDERED: TROUGH ORDER-PHARMACY XX NR (22:00)
[2022-07-09 23:25] VITALS: BP 102/64
[2022-07-10] MEDS: BACLOFEN 10 MG (LIORESAL) TAB PO PRN (02:52)
[2022-07-10 03:38] VITALS: BP 109/67
[2022-07-10] MEDS: NS IV 1000 ML 1,000 ML IV SCH ×3 (04:49→20:22)
[2022-07-10 05:42] LABS: BASOPHILS % (AUTO) 0 % (0-10); EOSINOPHILS # (AUTO) 0.3 10^3/uL (0.0-0.3); EOSINOPHILS % (AUTO) 3 % (0-10); HEMATOCRIT 35 % (35-52); HEMOGLOBIN 11.4 g/dL (11.5-16.0); LYMPHOCYTES # (AUTO) 0.9 10^3/uL (1.0-4.0); LYMPHOCYTES % (AUTO) 7 % (12-44); MEAN CORPUSCULAR HEMOGLOBIN 27 pg (25-34); MEAN CORPUSCULAR HGB CONC 32 g/dL (32-36); MEAN CORPUSCULAR VOLUME 85 fL (80-99); MEAN PLATELET VOLUME 10.5 fL (9.0-12.2); MONOCYTES # (AUTO) 0.6 10^3/uL (0.0-1.0); MONOCYTES % (AUTO) 5 % (0-12); NEUTROPHILS # (AUTO) 11.3 10^3/uL (1.8-7.8); NEUTROPHILS % (AUTO) 85 % (42-75); PLATELET COUNT 220 10^3/uL (130-400); WHITE BLOOD COUNT 13.2 10^3/uL (4.3-11.0)
[2022-07-10 05:52] LABS: ALBUMIN 2.2 GM/DL (3.2-4.5); POTASSIUM 3.6 MMOL/L (3.6-5.0)
[2022-07-10 05:53] LABS: CALCIUM 7.8 MG/DL (8.5-10.1)
[2022-07-10 05:54] LABS: TOTAL PROTEIN 5.3 GM/DL (6.4-8.2)
[2022-07-10 05:56] LABS: BILIRUBIN,TOTAL 0.3 MG/DL (0.1-1.0)
[2022-07-10 05:58] LABS: CREATININE SERUM 1.46 MG/DL (0.60-1.30)
[2022-07-10 08:20] VITALS: BP 107/64
[2022-07-10] MEDS: cefTRIAXone 1 GM PRE-MIX 50 ML IV SCH (09:03)
[2022-07-10] MEDS: meTOprolol TARTRATE 25 MG (LOPRESSOR) TABLET PO SCH ×2 (09:03→20:20)
[2022-07-10] MEDS: PANTOPRAZOLE 40 MG (PROTONIX) TAB PO SCH (09:03)
[2022-07-10] MEDS: ASPIRIN E.C. 81 MG (ECOTRIN) TAB PO SCH (09:03)
[2022-07-10] MEDS: HYDROcodone/APAP 7.5 MG/325 MG (LORTAB, LORCET PLUS) TABLET PO SCH ×2 (09:07→20:21)
[2022-07-10 11:39] VITALS: BP 105/63
--- NOTE | 2022-07-10 12:41 | Progress Note - Hospitalist ---
Subjective HPI/CC On Admission Date Seen by Provider: Jul 10, 2022 Time Seen by Provider: 08:10 Pt. is a 52 year old female who presented to the ED today with left leg pain. She is currently living at [facility] and reports the pain began yesterday. She rates it as a 9/10 pain that is in her left hip, thigh, and calf. She denies any recent falls or trauma to the area, but patient is a poor historian and does have altered mental status at this time. She knows she is in the hospital, but isn;t sure where and believed it was 2002 when I spoke with her. She reportedly had a CBC yesterday with a WBC count of 15.5. In the ED today she was tachycardic, with a WBC of 24.2 and a lactic acid of 4.87 initially. 1L IV normal saline bolus was given in the ED and patient was given 1 dose of rocephin and vancomycin with plans to admit. She reports mild headaches and intermittent chills since the pain began. She denies chest pain, SOB, abd pain, N/V/D, new weakness/numbness of extremities. Subjective/Events-last exam Patient was awake and alert lying in bed when seen this morning. She reports feeling better today than yesterday with slight improvement in left leg pain which she rates as an 8/10 at this time. She has had improvment in WBC from 21.2 on 07/09 to 13.2 today. She did have a Vancomycin trough of 37.6 last night and her vancomycin dose was adjusted based on this. She was seen by woundcare yesterday who identified ulcers of bilateral hips and sacrum which has been cleaned and bandaged by their team. She is also wearing irving wraps for compression therapy of lymphedema in legs. She reports good appetite, is having BM's, and has a hector catheter in place with clear yellow drainage. She denies fever, dizziness, CP, palpitations, SOB. She has been having slight nausea and abd discomfort this morning she associates with eating too much breakfast. Review of Systems General: No Chills, No Fatigue HEENT: No Head Aches, No Visual Changes Pulmonary: No Dyspnea, No Cough Cardiovascular: No: Chest Pain, Palpitations Gastrointestinal: Nausea (mild), Abdominal Pain (epigastric); No: Vomiting Genitourinary: No Dysuria, No Hematuria Musculoskeletal: leg pain (left leg) Neurological: No: Weakness, Numbness Focused Exam Lactate Level 07/08/22 21:03: Lactic Acid Level 2.59*H 07/08/22 23:14: Lactic Acid Level 2.31*H 07/09/22 04:01: Lactic Acid Level 1.75 Objective Exam Vital Signs Vital Signs Date Time Temp Pulse Resp B/P (MAP) Pulse Ox O2 Delivery O2 Flow Rate FiO2 07/10/22 11:39 36.6 77 18 105/63 (77) 91 Room Air 07/10/22 08:00 2.00 Capillary Refill : Less Than 3 Seconds General Appearance: No Apparent Distress, Obese HEENT: PERRL/EOMI, Pharynx Normal, Moist Mucous Membranes Neck: Full Range of Motion, Non Tender, Supple Respiratory: Chest Non Tender, Lungs Clear, Normal Breath Sounds, No Accessory Muscle Use, No Respiratory Distress Cardiovascular: Regular Rate, Rhythm, No Murmur, Normal Peripheral Pulses Gastrointestinal: Normal Bowel Sounds, No Organomegaly, No Pulsatile Mass, Soft; No Rebound; Tenderness (mild RLQ) Extremity: Normal Capillary Refill, Other (Distal shins/calfs wrapped in irving wrap bilaterally with non-pitting edema still present. Continues to have erythema of posterior thigh and hip.) Neurologic/Psychiatric: Alert, Oriented x3, No Motor/Sensory Deficits, Normal Mood/Affect Skin: Other (erythema and swelling as noted above) Lymphatic: No Adenopathy Results/Procedures Lab Laboratory Tests 07/10/22 05:30 Patient resulted labs reviewed. Assessment/Plan Assessment and Plan Assess & Plan/Chief Complaint Septic shock secondary to Cellulitis of left leg w/ altered mental status Pt. met criteria for septic shock with Tachycardia, WBC of 24.2, and LA of 4.87 on presentation IV bolus given in ED, will continue to give IV fluids based on ideal body weight as Pt. weight of 231Kg is too high for normal calculations Day 3 of Rocephin 1g QD IV and Vancomycin IV for cellulitis. Vancomycin dose adjusted to 1.25g IV Q18h from 2G IV BID after vanc trough of 37.6. LA peaked at 5.65 07/08 yesterday afternoon but improved to 1.75 on 07/09 07/10 WBC improved to 13.2 from 21.2 yesterday. Patient has full thickness non-pressure ulcers of bilateral hips as well as a stage 3 ulcer of sacrum identified by wound care. Will wash and bandage areas based on their recommendations. Will keep for 1 more day with planned DC 07/11 via EMS. Lactic Acidosis 07/08/22 0900 LA of 4.87 upon arrival. Peaked at 5.65 in afternoon. Improved to 1.75 on 07/09. GENNA Cr today of 1.46 which is mostly unchanged from yesterday but double her baseline from previous ED visit. Hopefully will improve with fluid resuscitation Monitor for now High anion Gap Resolved 07/09 with LA improvement Hypoalbuminemia 07/08/22 albumin of 2.7L likely secondary to poor nutrition. Hyperglycemia Random glucose of 235 on 07/08/22. Patient denies history of Diabetes. Elevati on may likely be due to stress of infection and being in hospital. Will consider starting Sliding scale Insulin therapy while here. Morbid obesity Elevated Liver enymes 07/08/22 AST of 46. Likely secondary to body habitus. Monitor for now. DVT Prophylaxis Lovenox 40mg SC QD for DVT prophylaxis refused by patient due to history of epistaxis. SCDs KOMAL STRINGER Jul 10, 2022 12:41
--- NOTE | 2022-07-10 12:46 | Discharge Inst-Simple/Standard ---
Discharge Inst-Standard Patient Instructions/Follow Up Plan of Care/Instructions/FU: Please continue to take your medications as written. Please follow up with your primary care doctor to follow up this hospital stay. Activity as Tolerated: Yes Discharge Diet: Low Sodium Diet Return to The Hospital For: Chest pain, shortness of breath, fever, weakness, if you feel you are getting worse. BRIDGETT CATHERINE MD Jul 10, 2022 12:46
[2022-07-10 15:32] VITALS: BP 107/71
[2022-07-10] MEDS: ONDANSETRON 4 MG/2 ML (SDV) Z0FRAN IV PRN ×2 (16:05→23:09)
[2022-07-10] MEDS: VANCOMYCIN 1250 MG/NS 250 ML IVPB IV SCH ×2 (17:14)
[2022-07-10 19:16] VITALS: BP 102/69
[2022-07-10] MEDS: MELATONIN 3 MG TABLET PO SCH (20:20)
[2022-07-10 23:22] VITALS: BP 99/64
[2022-07-11 03:40] VITALS: BP 111/73
[2022-07-11] MEDS: NS IV 1000 ML 1,000 ML IV SCH ×2 (05:29→11:47)
[2022-07-11 05:57] LABS: BASOPHILS # (AUTO) 0.1 10^3/uL (0.0-0.1); BASOPHILS % (AUTO) 1 % (0-10); EOSINOPHILS # (AUTO) 0.4 10^3/uL (0.0-0.3); EOSINOPHILS % (AUTO) 3 % (0-10); HEMATOCRIT 36 % (35-52); HEMOGLOBIN 11.6 g/dL (11.5-16.0); LYMPHOCYTES # (AUTO) 1.4 10^3/uL (1.0-4.0); LYMPHOCYTES % (AUTO) 10 % (12-44); MEAN CORPUSCULAR HEMOGLOBIN 27 pg (25-34); MEAN CORPUSCULAR HGB CONC 32 g/dL (32-36); MEAN CORPUSCULAR VOLUME 85 fL (80-99); MEAN PLATELET VOLUME 10.4 fL (9.0-12.2); MONOCYTES % (AUTO) 7 % (0-12); NEUTROPHILS # (AUTO) 10.6 10^3/uL (1.8-7.8); NEUTROPHILS % (AUTO) 77 % (42-75); PLATELET COUNT 281 10^3/uL (130-400); WHITE BLOOD COUNT 13.7 10^3/uL (4.3-11.0)
[2022-07-11 06:15] LABS: ALBUMIN 2.3 GM/DL (3.2-4.5); BILIRUBIN,TOTAL 0.3 MG/DL (0.1-1.0); CALCIUM 8.2 MG/DL (8.5-10.1); CREATININE SERUM 0.97 MG/DL (0.60-1.30); POTASSIUM 3.9 MMOL/L (3.6-5.0); TOTAL PROTEIN 5.5 GM/DL (6.4-8.2)
[2022-07-11 07:32] VITALS: BP 121/77
[2022-07-11] MEDS: meTOprolol TARTRATE 25 MG (LOPRESSOR) TABLET PO SCH (08:57)
[2022-07-11] MEDS: ASPIRIN E.C. 81 MG (ECOTRIN) TAB PO SCH (08:57)
[2022-07-11] MEDS: PANTOPRAZOLE 40 MG (PROTONIX) TAB PO SCH (08:57)
[2022-07-11] MEDS: HYDROcodone/APAP 7.5 MG/325 MG (LORTAB, LORCET PLUS) TABLET PO SCH (08:57)
[2022-07-11] MEDS: VANCOMYCIN 1250 MG/NS 250 ML IVPB IV SCH ×2 (10:04)
[2022-07-11] MEDS: cefTRIAXone 1 GM PRE-MIX 50 ML IV SCH (10:04)
[2022-07-11 11:18] VITALS: BP 99/66
[2022-07-11] MEDS ORDERED: SULF-221 PO (11:18)
[2022-07-11] MEDS ORDERED: CEPH500T PO (11:18)
--- NOTE | 2022-07-11 12:28 | Discharge Summary ---
KOMAL STRINGER 07/11/22 1228: Diagnosis/Chief Complaint Date of Admission Jul 08, 2022 at 10:45 Discharge Date: Jul 11, 2022 Admission Diagnosis Septic shock Primary Care No,Local Physician Discharge Diagnosis Septic shock secondary to Cellulitis of left leg w/ altered mental status Septic and altered mental status resolved. Lactic Acidosis Resolved GENNA Improving but will need reassessed at outpatient follow up with PCP. Full thickness non-pressure ulcers of bilateral hips unresolved. Follow up with Dr. Fink for wound care. Stage 3 sacral ulcer unresolved. Follow up with Dr. Fink for wound care. High anion Gap Resolved 07/09 with LA improvement. Hypoalbuminemia 07/08/22 albumin of 2.7L likely secondary to poor nutrition. Protein shakes r ecommended by wound care. Hyperglycemia Likely secondary to hospitalization. Recommend follow up in out patient setting with PCP. Elevated Liver enymes 07/08/22 AST of 46. Resolved by time of DC. Morbid obesity SHASHI Discharge Summary Procedures/Consulations Wound care: Dr. Fink Discharge Physical Exam Allergies: Coded Allergies: Penicillins (Verified Allergy, Unknown, 11/14/21) clindamycin (Verified Allergy, Unknown, 11/14/21) dextromethorphan (Verified Allergy, Unknown, 11/14/21) diphenhydramine (Verified Allergy, Unknown, 11/14/21) doxylamine (Verified Allergy, Unknown, 11/14/21) erythromycin base (Verified Allergy, Unknown, 11/14/21) pseudoephedrine (Verified Allergy, Unknown, 11/14/21) quetiapine (Verified Allergy, Unknown, 11/14/21) acetaminophen (Verified Adverse Reaction, Mild, unsure- [facility]yl[facility], 07/11/22) Vitals & I&Os Vital Signs Date Time Temp Pulse Resp B/P (MAP) Pulse Ox O2 Delivery O2 Flow Rate FiO2 07/11/22 11:18 36.2 77 18 99/66 (77) 100 Room Air 07/10/22 20:00 2.00 General Appearance: No Apparent Distress, Obese HEENT: PERRL/EOMI, Pharynx Normal, Moist Mucous Membranes Respiratory: Chest Non Tender, Normal Breath Sounds, No Accessory Muscle Use, No Respiratory Distress Cardiovascular: Regular Rate, Rhythm, No Murmur, Normal Peripheral Pulses Gastrointestinal: Normal Bowel Sounds, Non Tender, Soft Extremity: Normal Capillary Refill, Other (Significant non-pitting edema of legs bilaterally. Patient had compression bandages around her distal legs when seen. ontinues to have diffuse erythema on calfs and thighs that is moderately painful to the touch. ) Skin: Erythema (present along posterior aspect of legs.) Neurologic/Psychiatric: Alert, Oriented x3, Normal Mood/Affect Hospital Course Was the Problem List Reviewed?: Yes Pt. is a 52 year old female hospitalized from 07/08/22 - 07/11/22 for severe sepsis secondary to cellulitis of her left leg. Her initial labwork on 07/08/22 revealed WBC of 24.2 and lactic acid of 4.87. During her hospital stay she recieved rocephin and Vancomycin as well as IV fluids. She responded quickly to treatment with improvement of LA to 1.75 by 07/09/22 and WBC to 13.7 at time of discharge. During her hospital stay she had a critical vancomycin trough of 37.6 on 07/09/22 and her vancomycin was adjusted appropriately at that time. She had a concomitant GENNA associated with her sepsis with a Cr of 1.41 on 07/08/22 presentation. By time of discharge 07/11/22 her Cr had improved to 0.97 and will need to be reassessed by PCP to ensure it continue to trend towards baseline. During her stay she was evaluated by our wound care team who identified full thickness non-pressure ulcers of bilateral hips as well as a stage 3 sacral ulcer. These areas were cleaned and bandaged per their recommendations and patient will need continued follow up with Dr. Fink after discharge. Labs (last 24 hrs) Laboratory Tests 07/11/22 05:36: White Blood Count 13.7H, Red Blood Count 4.26, Hemoglobin 11.6, Hematocrit 36, Mean Corpuscular Volume 85, Mean Corpuscular Hemoglobin 27, Mean Corpuscular Hemoglobin Concent 32, Red Cell Distribution Width 15.6H, Platelet Count 281, Mean Platelet Volume 10.4, Immature Granulocyte % (Auto) 2, Neutrophils (%) (Auto) 77H, Lymphocytes (%) (Auto) 10L, Monocytes (%) (Auto) 7, Eosinophils (%) (Auto) 3, Basophils (%) (Auto) 1, Neutrophils # (Auto) 10.6H, Lymphocytes # (Auto) 1.4, Monocytes # (Auto) 1.0, Eosinophils # (Auto) 0.4H, Basophils # (Auto) 0.1, Immature Granulocyte # (Auto) 0.2H, Sodium Level 137, Potassium Level 3.9, Chloride Level 108H, Carbon Dioxide Level 22, Anion Gap 7, Blood Urea Nitrogen 37H, Creatinine 0.97, Estimat Glomerular Filtration Rate 70, BUN/Creatinine Ratio 38, Glucose Level 145H, Calcium Level 8.2L, Corrected Calcium 9.6, Total Bilirubin 0.3, Aspartate Amino Transf (AST/SGOT) 21, Alanine Aminotransferase (ALT/SGPT) 26, Alkaline Phosphatase 93, Total Protein 5.5L, Albumin 2.3L Microbiology 07/08/22 Blood Culture - Preliminary, Resulted No growth Patient resulted labs reviewed. Pending Labs Laboratory Tests 07/11/22 05:36: White Blood Count 13.7, Red Blood Count 4.26, Hemoglobin 11.6, Hematocrit 36, Mean Corpuscular Volume 85, Mean Corpuscular Hemoglobin 27, Mean Corpuscular Hemoglobin Concent 32, Red Cell Distribution Width 15.6, Platelet Count 281, Mean Platelet Volume 10.4, Immature Granulocyte % (Auto) 2, Neutrophils (%) (Auto) 77, Lymphocytes (%) (Auto) 10, Monocytes (%) (Auto) 7, Eosinophils (%) (Auto) 3, Basophils (%) (Auto) 1, Neutrophils # (Auto) 10.6, Lymphocytes # (Auto) 1.4, Monocytes # (Auto) 1.0, Eosinophils # (Auto) 0.4, Basophils # (Auto) 0.1, Immature Granulocyte # (Auto) 0.2, Sodium Level 137, Potassium Level 3.9, Chloride Level 108, Carbon Dioxide Level 22, Anion Gap 7, Blood Urea Nitrogen 37, Creatinine 0.97, Estimat Glomerular Filtration Rate 70, BUN/Creatinine Ratio 38, Glucose Level 145, Calcium Level 8.2, Corrected Calcium 9.6, Total Bilirubin 0.3, Aspartate Amino Transf (AST/SGOT) 21, Alanine Aminotransferase (ALT/SGPT) 26, Alkaline Phosphatase 93, Total Protein 5.5, Albumin 2.3 Discussion & Recommendations Patient will need close follow up with PCP as well as Dr. Fink in the outpatient setting to help cellulitis, lymphedema, and ulcers heal. Take oral abx as prescribed. If fever, altered mental status, CP, SOB, abd pain, or if there is acute worsening of left leg pain then these would merit contacting your PCP or presenting to the hospital. Discharge Home Medications: Active Scripts Active Bactrim Ds Tablet (Sulfamethoxazole/Trimethoprim) 800 Mg-160 Mg Tablet 1 Each PO BID Cephalexin 500 Mg Tablet 500 Mg PO BID Reported Pantoprazole Sodium 40 Mg Tablet.dr 40 Mg PO DAILY Ondansetron HCl 4 Mg Tablet 4 Mg PO Q6H PRN Nystatin 100,000 Unit/Gram Cream..g. 1 Applic TP Q8H PRN Muscle Rub 15%-10% Cream (Methyl Salicylate/Menthol) 15 %-10 % Cream..g. 1 Applic TP Q6H PRN Miralax (Polyethylene Glycol 3350) 17 Gram Powd.pack 17 Gm PO DAILY PRN Miconazole Nitrate 2 % Powder 1 Applic TP BID PRN Metoprolol Tartrate 25 Mg Tablet 12.5 Mg PO BID TAKES OF A 25MG TAB HOLD FOR SBP <100 OR PULSE <60 AND NOTIFY NURSE IF HELD Melatonin 3 Mg Tablet 3 Mg PO HS Loperamide (Loperamide HCl) 2 Mg Capsule 2-4 Mg PO UD PRN Hydrocodone-Acetamin 7.5-325 (Hydrocodone/Acetaminophen) 7.5 Mg-325 Mg Tablet 1 Ea PO BID Cyclobenzaprine HCl 5 Mg Tablet 5 Mg PO Q8H PRN Bumetanide 1 Mg Tablet 1 Mg PO DAILY Baclofen 10 Mg Tablet 10 Mg PO TID PRN Aspirin EC (Aspirin) 81 Mg Tablet.dr 81 Mg PO DAILY Eliquis (Apixaban) 5 Mg Tablet 5 Mg PO BID Albuterol Sulfate 2.5 Mg/0.5 Ml Vial.neb 2.5 Mg INH Q6H PRN Tylenol Extra Strength (Acetaminophen) 500 Mg Tablet 1,000 Mg PO Q6H PRN Instructions to patient/family Please see electronic discharge instructions given to patient. BRIDGETT DE DIOS MD 07/11/22 1501: Discharge Summary Discharge Physical Exam Allergies: Coded Allergies: Penicillins (Verified Allergy, Unknown, 11/14/21) clindamycin (Verified Allergy, Unknown, 11/14/21) dextromethorphan (Verified Allergy, Unknown, 11/14/21) diphenhydramine (Verified Allergy, Unknown, 11/14/21) doxylamine (Verified Allergy, Unknown, 11/14/21) erythromycin base (Verified Allergy, Unknown, 11/14/21) pseudoephedrine (Verified Allergy, Unknown, 11/14/21) quetiapine (Verified Allergy, Unknown, 11/14/21) acetaminophen (Verified Adverse Reaction, Mild, unsure- takes Tyl[facility]ol [facility], 07/11/22) Discussion & Recommendations Discharge Planning: >30 minutes discharge planning Supervisory-Addendum Brief Verification & Attestation Participated in pt care: history, MDM, physical Personally performed: exam, history, MDM, supervision of care Care discussed with: Medical Student Procedures: n/a Results interpretation: Verified all documentation Verification and Attestation of Medical Student E/M Service A medical student performed and documented this service in my presence. I reviewed and verified all information documented by the medical student and made modifications to such information, when appropriate. I personally performed the physical exam and medical decision making. Bridgett De Dios, Jul 11, 2022,15:01 KOMAL STRINGER Jul 11, 2022 12:28 BRIDGETT DE DIOS MD Jul 11, 2022 15:01
[2022-07-11 12:45] VITALS: BP 99/66
[2022-07-12] MEDS ORDERED: TROUGH ORDER-PHARMACY XX NR (04:00)
== END 2022-07-11 12:50 | DRG 871 ==
LOC: EDUNIT# 08:32 → ER 08:34 → 4TH 10:45
PROVIDERS: ADMIT Family Medicine; ATTEND Family Medicine
DX: A41.9 Sepsis, unspecified organism (principal); E43 Unspecified severe protein-calorie malnutrition; L89.153 Pressure ulcer of sacral region, stage 3; R65.21 Severe sepsis with septic shock; L03.116 Cellulitis of left lower limb; N17.9 Acute kidney failure, unspecified; Z68.45 Body mass index [BMI] 70 or greater, adult; E87.20 Acidosis, unspecified; E66.01 Morbid (severe) obesity due to excess calories; L89.229 Pressure ulcer of left hip, unspecified stage; L89.219 Pressure ulcer of right hip, unspecified stage; E88.09 Other disorders of plasma-protein metabolism, not elsewhere classified; R73.9 Hyperglycemia, unspecified; G47.33 Obstructive sleep apnea (adult) (pediatric); R53.1 Weakness; I89.0 Lymphedema, not elsewhere classified
CPT/HCPCS: 36415; 71045; 73502; 73552; 80053; 80202; 83605; 85007; 85025; 85027; 85610; 85730; 87040